=== PATIENT | female | born 1985 | race Caucasian/White ===

== ENCOUNTER 2019-03-01 11:18 | Emergency (ER) | payer MEDICAID ==
[~2019-03-01] VITALS: Ht 166.4 cm; Wt 57.0 kg
[2019-03-01] MEDS ORDERED: TETanus/Pertussis (Acell)/Diphther VAC/PF (Tdap-Adult) 0.5ml syringe IM ONE (12:40)
[2019-03-01 13:18] VITALS: BP 121/72
== END 2019-03-01 13:23 | disposition home or self-care (01) ==
LOC: ER 11:19
DX: S90.32XA Contusion of left foot, initial encounter (principal); F10.99 Alcohol use, unspecified with unspecified alcohol-induced disorder; Z88.8 Allergy status to other drugs, medicaments and biological substances; W22.8XXA Striking against or struck by other objects, initial encounter; Y93.89 Activity, other specified; Y92.89 Other specified places as the place of occurrence of the external cause; Y99.8 Other external cause status; Y90.9 Presence of alcohol in blood, level not specified
CPT/HCPCS: 73630; 90471; 99283